=== PATIENT | male | born 1960 | race Caucasian/White ===

== ENCOUNTER 2017-09-01 09:04 | Emergency (ER) | payer BC, SELFPAY ==
[2017-09-01 09:13] VITALS: BP 150/84; PULSE 74; RESP 14; TEMP 36.3; O2SAT 99; BMI 39.2
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
[2017-09-01] MEDS: Morphine 2 MG/ML Syringe IV (09:39)
[2017-09-01] MEDS: 0.9% Normal Saline 1,000 ML 999 ML IV (09:39)
[2017-09-01 09:46] LABS: Absolute Lymphocyte Count 1.12 X10^3/ul (0.83-4.51); Absolute Neutrophil Count 4.8 X10^3/uL (2.0-7.7); Basophil# 0.02 X10^3/uL; Basophil% 0.3 % (0-1); Hematocrit 38.9 % (40-54); Hemoglobin 12.7 g/dl (13.0-16.5); Lymphocyte # 1.12 X10^3/ul (4.0); Lymphocyte % 17.1 % (19-41); Mean Corp Hgb Conc 32.6 g/gl (32-36); Mean Corpuscular Hgb 29.6 pg (27.0-32.0); Mean Corpuscular Volume 90.7 fL (80-94); Mean Platelet Vol. 10.9 fl (6.2-12.0); Monocyte# 0.38 X10^3/uL; Monocyte% 5.8 % (0-10); Neutrophil # 4.81 X10^3/uL (2.7-7.7); Neutrophil % 73.3 % (47-70); POSITIVE COUNT NO; POSITIVE DIFFERENTIAL NO; POSITIVE MORPHOLOGY NO; Platelet Count 247 K/mm3 (150-450); RBC Distribution Width CV 12.8 % (11.6-14.6); RBC Distribution Width SD 42.3 fl (35.1-43.9); Red Blood Count 4.29 M/mm3 (4.6-6.2); White Blood Count 6.6 K/mm3 (4.4-11.0)
[2017-09-01 09:53] LABS: Prothrombin Time (Protime)PT. 13.6 SECONDS (11.7-14.9)
[2017-09-01 09:54] LABS: Partial Thromboplast Time 27.8 Seconds (24.1-36.2)
[2017-09-01] MEDS: Cefazolin 1 GM/50 ML BAG IV (10:04)
[2017-09-01 10:14] LABS: AST(SGOT) 26 U/L (15-37); Alanine Aminotransfer ALT/SGPT 37 U/L (16-61); Albumin, Serum 3.6 g/dL (3.2-5.0); Alkaline Phosphatase 52 U/L (45-117); Anion Gap 6 (5-15); BUN 20 mg/dL (7-18); Bilirubin, Direct 0.06 mg/dL (0.00-0.30); Chloride 108 mmol/L (98-107); Creatinine, Serum 1.11 mg/dL (0.70-1.30); EST Glomerular Filtration Rate 73 mL/min (>60); Est Glom Filt Rate - Afr Amer 88 mL/min (>60); Estimated Creatinine Clearance 67.06 ml/min; Globulin 2.8 g/dL (2.2-4.2); Glucose 165 mg/dL (74-106); Potassium 4.1 mmol/L (3.5-5.1); Protein, Total 6.4 g/dL (6.4-8.2); Sodium Level 140 mmol/L (136-145)
[2017-09-01 10:20] VITALS: BP 119/61; PULSE 58
[2017-09-01 10:30] VITALS: BP 75/64; PULSE 60
[2017-09-01 10:38] VITALS: BP 60/49; PULSE 64; RESP 17
[2017-09-01 10:43] VITALS: BP 104/68; PULSE 68; RESP 18
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
[2017-09-01 11:10] VITALS: BP 105/86; PULSE 66; RESP 16; O2SAT 100
== END 2017-09-01 11:10 | disposition short-term general hospital (02) ==
LOC: ED 10:34
PROVIDERS: Emergency Provider Emergency Medicine
DX: S08.0XXA Avulsion of scalp, initial encounter (principal); V89.2XXA Person injured in unspecified motor-vehicle accident, traffic, initial encounter; Y93.89 Activity, other specified; Y92.9 Unspecified place or not applicable; I95.9 Hypotension, unspecified
CPT/HCPCS: 36430; 70450; 71260; 72125; 74177; 80048; 80076; 80320; 85025; 85610; 85730; 86850; 86900; 86920; 86922; 93005; 96365; 96375; 99285; J7030; J7040; P9016; Q9967; A4216; G0480